=== PATIENT | female | born 1945 | race Caucasian/White ===

== ENCOUNTER 2019-10-22 11:04 | Emergency (ER) | payer MEDICARE, BC ==
[2019-10-22 11:39] VITALS: BP 153/79
[2019-10-22] MEDS ORDERED: Tetan/Diph/Pertus SYR(Tdap)* 0.5 ML SYR(BOOSTRIX) use SYR contains LATEX IM ONE (11:46)
[2019-10-22] MEDS ORDERED: Benzoin Compound STICK TOPICAL ONE (12:18)
--- NOTE | 2019-10-22 12:18 | UC ---
Upper Extremity HPI - HPI Summary HPI Summary: patient cut L index finger on kitchen knife yesterday at 5p. she washed and bandaged finger but it is still oozing blood today. last Tdap> 10y pain 3:10 - History of Current Complaint Chief Complaint: UCLaceration Stated Complaint: FINGER INJURY Time Seen by Provider: 10/22/19 12:12 Hx Obtained From: Patient Onset/Duration: Sudden Onset Severity Initially: Moderate Severity Currently: Mild Pain Intensity: 3 Aggravating Factor(s): Movement Alleviating Factor(s): Rest Associated Signs And Symptoms: Positive: Negative Related History: Dominant Hand Right - Allergies/Home Medications Allergies/Adverse Reactions: Allergies Allergy/AdvReac Type Severity Reaction Status Date / Time No Known Allergies Allergy Verified 10/22/19 11:39 Home Medications: Home Medications Anastrozole 1 mg PO DAILY 10/22/19 [History Confirmed 10/22/19] Denosumab* [Xgeva*] 1 % .ROUTE 10/22/19 [History] Olmesartan/Hydrochlorothiazide [Olmesartan-Hctz 20-12.5 mg Tab] 1 tab PO DAILY 10/22/19 [History Confirmed 10/22/19] PMH/Surg Hx/FS Hx/Imm Hx Previously Healthy: Yes Cancer History: Breast Cancer - Surgical History Surgical History: Yes Surgery Procedure, Year, and Place: lump - Family History Known Family History: Positive: Hypertension - Social History Occupation: Retired Lives: With Family Alcohol Use: Occasionally Substance Use Type: None Smoking Status (MU): Never Smoked Tobacco Review of Systems All Other Systems Reviewed And Are Negative: Yes Constitutional: Positive: Negative. Negative: Fever Respiratory: Positive: Negative Cardiovascular: Positive: Negative Musculoskeletal: Positive: Negative. Negative: Decreased ROM Neurological/Mental Status: Positive: Negative Psychological: Positive: Negative Is Patient Immunocompromised?: No Physical Exam Triage Information Reviewed: Yes Appearance: Well-Appearing, No Pain Distress, Well-Nourished Vital Signs: Initial Vital Signs Temp 98.2 F 10/22/19 11:36 Pulse 68 10/22/19 11:36 Resp 16 10/22/19 11:36 BP 153/79 10/22/19 11:36 Pulse Ox 100 10/22/19 11:36 Vital Signs Reviewed: Yes Respiratory Exam: Normal Respiratory: Positive: Lungs clear Cardiovascular Exam: Normal Musculoskeletal Exam: Normal Musculoskeletal: Positive: Strength Intact, ROM Intact Neurological Exam: Normal Neurological: Positive: Alert Psychological Exam: Normal Skin: Positive: Other - 10mm linear superficial laceration, 3mm wide, 2mm deep without active bleeding Upper Extremity Course/Dx - Course Course Of Treatment: wound was cleansed with Hibiclens solution and allowed to dry. benzoin swab applied, and then steri strips to close wound. dressing and alfoam splint applied - Differential Dx/Diagnosis Provider Diagnosis: Laceration Discharge ED - Sign-Out/Discharge Documenting (check all that apply): Patient Departure All imaging exams completed and their final reports reviewed: No Studies - Discharge Plan Condition: Good Disposition: HOME Patient Education Materials: Steristrips (ED), Laceration (ED) Referrals: No Primary Care Phys,NOPCP [Primary Care Provider] - Additional Instructions: keep wound clean and dry and try to keep steri strips on for 5 days use splint to help from bending finger use Tylenol for pain if needed return here for signs of infection - Billing Disposition and Condition Condition: GOOD Disposition: Home
== END 2019-10-22 12:57 | disposition home or self-care (01) ==
LOC: UCEAST 11:04
DX: S61.211A Laceration without foreign body of left index finger without damage to nail, initial encounter (principal); Z85.3 Personal history of malignant neoplasm of breast; W26.0XXA Contact with knife, initial encounter; Y92.89 Other specified places as the place of occurrence of the external cause
CPT/HCPCS: 90715; 99201; G0463